=== PATIENT | female | born 1955 | race Hispanic/Latino ===

== ENCOUNTER → 2023-10-07 | Outpatient (RCR) | payer MEDICARE ==
[~2023-10-07] MED LIST: FOLIC ACID1 MG; LISINOPRIL10 MG; METHOTREXA25 MG/1 M5; NEURONTIN300 MG; NORCO 7.5-3251 EACH; PROAIR HFA INH8.5 GM; ROBAXIN-750750 MG; TOPROL XL100 MG
== END ==
LOC: PT 09-16 13:39
PROVIDERS: ATTEND Specialist
DX: S83.92XD Sprain of unspecified site of left knee, subsequent encounter (principal); M62.81 Muscle weakness (generalized); M25.562 Pain in left knee; M25.662 Stiffness of left knee, not elsewhere classified; R26.2 Difficulty in walking, not elsewhere classified